=== PATIENT | male | born 1955 | race Caucasian/White ===

== ENCOUNTER 2017-01-17 17:54 | Emergency (ER) | payer MEDICAID ==
[~2017-01-17] VITALS: Ht 185.4 cm; Wt 81.6 kg
[2017-01-17 18:14] VITALS: BP 152/81
== END 2017-01-17 19:42 | disposition left against medical advice (07) ==
LOC: ER 17:59
DX: R52 Pain, unspecified (principal); Z76.0 Encounter for issue of repeat prescription; Z53.21 Procedure and treatment not carried out due to patient leaving prior to being seen by health care provider

== ENCOUNTER 2018-10-04 16:51 | Emergency (ER) | payer MEDICAID ==
[~2018-10-04] VITALS: Ht 182.9 cm; Wt 81.6 kg
[2018-10-04 16:58] VITALS: BP 143/77
== END 2018-10-04 22:18 | disposition left against medical advice (07) ==
LOC: EDBD → ER 16:58
DX: M79.605 Pain in left leg (principal); Z53.21 Procedure and treatment not carried out due to patient leaving prior to being seen by health care provider; W22.042A Striking against wall of swimming pool causing other injury, initial encounter; Y93.11 Activity, swimming; Y92.89 Other specified places as the place of occurrence of the external cause; Y99.8 Other external cause status
CPT/HCPCS: 73562; 73610

== ENCOUNTER 2018-10-05 20:00 | Emergency (ER) | payer MEDICAID ==
[~2018-10-05] VITALS: Ht 182.9 cm; Wt 81.6 kg
[2018-10-05 20:39] VITALS: BP 156/81
== END 2018-10-06 05:52 | disposition home or self-care (01) ==
LOC: EDBD 20:08 → ER 20:08
DX: R20.0 Anesthesia of skin (principal); R20.2 Paresthesia of skin; M79.605 Pain in left leg; M79.604 Pain in right leg; K21.9 Gastro-esophageal reflux disease without esophagitis; Z79.899 Other long term (current) drug therapy